=== PATIENT | female | born 1990 | race American Indian/Alaskan Native ===

== ENCOUNTER 2017-10-27 20:00 | Emergency (ER) | payer OTHER ==
[2017-10-27 20:00] VITALS: BMI 57.5
--- NOTE | 2017-10-27 20:09 | ED PDOC ---
"Arrival/HPI - General Historian: Patient <Asad Harper - Last Filed: 10/28/17 01:08> <Filipe Perez - Last Filed: 10/28/17 01:41> - General Time Seen by Provider: 10/27/17 20:08 - History of Present Illness Narrative History of Present Illness (Text): 10/27/17 20:09 27 y/o female, pmh including bronchitis, nkda, c/o nausea/vomiting/diarrhea x 1- 2 weeks. 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 (Asad Harper) Past Medical History - Provider Review Nursing Documentation Reviewed: Yes - Past Medical History Past Medical History: No Previous - Pulmonary Hx Asthma: Yes Hx Bronchitis: Yes - Psychiatric Hx Psychophysiologic Disorder: No Hx Depression: No Hx Emotional Abuse: No Hx Physical Abuse: No Hx Substance Use: No - Past Surgical History Past Surgical History: No Previous - Suicidal Assessment Feels Threatened In Home Enviroment: No <Asad Harper - Last Filed: 10/28/17 01:08> Family/Social History - Physician Review Nursing Documentation Reviewed: Yes Family/Social History: Unknown Family HX Smoking Status: Current Some Days Smoker Hx Alcohol Use: Yes Hx Substance Use: No <Asad Harper - Last Filed: 10/28/17 01:08> Allergies/Home Meds <Asad Harper - Last Filed: 10/28/17 01:08> <Filipe Perez - Last Filed: 10/28/17 01:41> Allergies/Adverse Reactions: Allergies No Known Allergies Allergy (Verified 10/27/17 20:11) Review of Systems - Review of Systems Constitutional: Fatigue. absent: Fevers Eyes: absent: Vision Changes ENT: absent: Hearing Changes, Rhinorrhea Respiratory: absent: SOB, Cough Cardiovascular: absent: Chest Pain Gastrointestinal: Abdominal Pain, Diarrhea, Nausea, Vomiting Musculoskeletal: absent: Arthralgias, Back Pain Skin: absent: Rash, Pruritis Neurological: absent: Headache, Dizziness <Asad Harper - Last Filed: 10/28/17 01:08> Physical Exam Vital Signs Reviewed: Yes Temperature: Afebrile Blood Pressure: Normal Pulse: Regular Respiratory Rate: Normal Appearance: Positive for: Well-Appearing, Non-Toxic, Comfortable Pain Distress: Mild Mental Status: Positive for: Alert and Oriented X 3 - Systems Exam Head: Present: Atraumatic, Normocephalic Pupils: Present: PERRL Extroacular Muscles: Present: EOMI Conjunctiva: Present: Normal Mouth: Present: Moist Mucous Membranes Neck: Present: Normal Range of Motion Respiratory/Chest: Present: Clear to Auscultation, Good Air Exchange. No: Respiratory Distress, Accessory Muscle Use Cardiovascular: Present: Regular Rate and Rhythm, Normal S1, S2. No: Murmurs Abdomen: Present: Tenderness (generalized epigastric and LLQ tenderness), Normal Bowel Sounds. No: Distention, Peritoneal Signs, Rebound, Guarding Back: Present: Normal Inspection. No: CVA Tenderness Upper Extremity: Present: Normal Inspection. No: Cyanosis, Edema Lower Extremity: Present: Normal Inspection. No: Edema Neurological: Present: GCS=15, Speech Normal, Motor Func Grossly Intact, Gait Normal, Memory Normal Skin: Present: Warm, Dry, Normal Color. No: Rashes Psychiatric: Present: Alert, Oriented x 3, Normal Insight, Normal Concentration <Asad Harper - Last Filed: 10/28/17 01:08> Vital Signs Temp Pulse Resp BP Pulse Ox 10/27/17 23:38 78 17 115/64 100 10/27/17 20:00 98.7 F 80 19 141/89 100 Medical Decision Making - Lab Interpretations I have reviewed the lab results: Yes Interpretation: Abnormal lab values (wbc 14.2) - RAD Interpretation Pin Pusher: Radiologist <Asad Harper - Last Filed: 10/28/17 01:08> <Filipe Perez - Last Filed: 10/28/17 01:41> ED Course and Treatment: 10/27/17 20:27 -labs/ua/rapid flu -CT abdomen and pelvis -IVF/pepcid/reglan -observe and reassess 10/27/17 21:42 -Urine hcg negative. -Labs are non-significant except wbc 14.2 -Negative influenza -Pending UA and CT. 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 Fatty infiltration of an enlarged liver. Normal appendix. 10/28/17 01:08 -UA show no UTI. -Pt. feels well, eating and drinking well, no other medical or psychological complaints. -Case discussed with Dr. Perez, agreed to discharge home. I explained to the patient that she should follow up for her wbc is 14.2 to ensure there needs to be a trend down. -Discharge home with pepcid, zofran, bed rest, follow up with your own pmd and GI within 2 days, return to the ER for any new or worsening signs or symptoms. (Asad Harper) - Lab Interpretations Lab Results: 10/27/17 20:45 10/27/17 20:45 Lab Results 10/28/17 00:10: Urine Color Yellow, Urine Appearance Clear, Urine pH 6.5, Ur Specific Colona <= 1.005, Urine Protein Negative, Urine Glucose (UA) Negative, Urine Ketones Negative, Urine Blood Negative, Urine Nitrate Negative, Urine Bilirubin Negative, Urine Urobilinogen 0.2, Ur Leukocyte Esterase Negative 10/27/17 21:00: Influenza Typ A,B (EIA) Negative for flu a/b 10/27/17 20:45: Sodium 139, Potassium 3.9, Chloride 103, Carbon Dioxide 27, Anion Gap 14, BUN 12, Creatinine 0.9, Est GFR ( Amer) > 60, Est GFR (Non- Af Amer) > 60, Random Glucose 95, Calcium 10.0, Total Bilirubin 0.5, AST 36, ALT 45, Alkaline Phosphatase 86, Total Protein 9.0 H, Albumin 4.4, Globulin 4.6 , Albumin/Globulin Ratio 1.0 L, Lipase 30 10/27/17 20:45: WBC 14.2 H D, RBC 4.89, Hgb 13.1, Hct 40.3, MCV 82.4, MCH 26.8, MCHC 32.5, RDW 14.9 H, Plt Count 314, MPV 10.8, Gran % 59.9, Lymph % (Auto) 30.1 , Isabela % (Auto) 6.6 H, Eos % (Auto) 3.2, Baso % (Auto) 0.2, Gran # 8.49 H, Lymph # 4.3 H, Isabela # 0.9 H, Eos # 0.5, Baso # 0.03 - RAD Interpretation Radiology Orders: 10/27/17 20:24 ABD & PELVIS IV CONTRAST ONLY [CT] Stat Lower thorax: The bilateral lung bases are clear. ABDOMEN: Liver: The liver is enlarged and demonstrates diffuse fatty infiltration. Gallbladder and bile ducts: The gallbladder is decompressed. No calcified stones. No significant intra- or extrahepatic biliary ductal dilation. Pancreas: Enhances homogeneously. No ductal dilation. No discrete mass. Spleen: No acute findings. Adrenals: No acute findings. Kidneys and ureters: Striated nephrograms are detected bilaterally for which clinical correlation is needed. No hydronephrosis or renal calculi. No discrete solid mass. IFEOMA LAINEZ | Final Radiology Report CONFIDENTIALITY STATEMENT This report is intended only for use by the referring physician, and only in accordance with law. If you received this in error, call [phone]. Page 2 of 2 PELVIS: Bladder: No acute findings. Reproductive: No acute findings. Appendix: The appendix is of normal caliber (series 2, image 128) . ABDOMEN and PELVIS: Stomach and bowel: No obstruction. No mucosal thickening. Peritoneum: No significant fluid collection. No free air. Lymph nodes: No pathologically enlarged lymph nodes. Vasculature: Unremarkable. Bones: No acute fracture. 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 Fatty infiltration of an enlarged liver. Normal appendix. Thank you for allowing us to participate in the care of your patient. Dictated and Authenticated by: Maia Reyna MD 10/27/2017 11:14 PM Eastern Time ([place] & [place]) (Asad Harper) - Medication Orders Current Medication Orders: Discontinued Medications Famotidine (Pepcid) 20 mg IVP STAT STA Stop: 10/27/17 20:25 Last Admin: 10/27/17 21:08 Dose: 20 mg IVP Administration Document 10/27/17 21:08 EQ (Rec: 10/27/17 21:08 EQ [facility] [id number]) Charges for Administration # of IVP Administrations 1 Sodium Chloride (Sodium Chloride 0.9%) 1,000 mls @ 999 mls/hr IV .Q1H1M STA Stop: 10/27/17 21:24 Last Admin: 10/27/17 21:08 Dose: 999 mls/hr eMAR Start Stop Document 10/27/17 21:08 EQ (Rec: 10/27/17 21:08 EQ [facility] [id number]) Intravenous Solution Start Date 10/27/17 Start Time 21:08 Metoclopramide HCl (Reglan) 10 mg IVP STAT STA Stop: 10/27/17 20:25 Last Admin: 10/27/17 21:08 Dose: 10 mg IVP Administration Document 10/27/17 21:08 EQ (Rec: 10/27/17 21:08 EQ [facility] [id number]) Charges for Administration # of IVP Administrations 1 - PA / [employer]ER / Resident Statement SURJIT has reviewed & agrees with the documentation as recorded. <Asad Harper - Last Filed: 10/28/17 01:08> - PA / [employer]ER / Resident Statement SURJIT has reviewed & agrees with the documentation as recorded. SURJIT has examined the patient and agrees with the treatment plan. <Filipe Perez - Last Filed: 10/28/17 01:41> Disposition/Present on Arrival - Present on Arrival Any Indicators Present on Arrival: No History of DVT/PE: No History of Uncontrolled Diabetes: No Urinary Catheter: No History of Decub. Ulcer: No History Surgical Site Infection Following: None - Disposition Have Diagnosis and Disposition been Completed?: Yes Disposition Time: 01:15 Patient Plan: Discharge <Asad Harper - Last Filed: 10/28/17 01:08> <Filipe Perez - Last Filed: 10/28/17 01:41> - Disposition Diagnosis: Gastroenteritis, Leukocytosis (leucocytosis) Disposition: HOME/ ROUTINE Patient Problems: Current Active Problems Problem Status Onset Gastroenteritis Acute Leukocytosis (leucocytosis) Acute Condition: IMPROVED Additional Instructions: -Discharge home with pepcid, zofran, bed rest, follow up with your own pmd and GI within 2 days, return to the ER for any new or worsening signs or symptoms. Prescriptions: Famotidine [Pepcid] 20 mg PO BID PRN #22 tab PRN Reason: Other Ondansetron [Zofran] 4 mg PO Q8H PRN #10 tab PRN Reason: Nausea/Vomiting Referrals: Edson Mars MD [Staff Provider] - Follow up with primary Forms: WORK NOTE"
[2017-10-27 20:15] VITALS: TEMP 98.7
[2017-10-27] MEDS ORDERED: Sodium Chloride 0.9% 1,000 ML IV STA (20:24)
[2017-10-27 20:52] LABS: BASO # 0.03 K/mm3 (0.0-2.0); BASO % 0.2 % (0.0-3.0); EOS # 0.5 (0.0-0.7); EOS % 3.2 % (1.5-5.0); GRAN # 8.49 (1.4-6.5); GRAN % 59.9 % (50.0-68.0); HEMATOCRIT 40.3 % (36.0-48.0); LYMPH # 4.3 (1.2-3.4); LYMPH % 30.1 % (22.0-35.0); MEAN CELL VOLUME 82.4 fl (80.0-105.0); MEAN CORPUSCULAR HEMOGLOBIN 26.8 pg (25.0-35.0); MEAN CORPUSCULAR HGB CONC 32.5 g/dl (31.0-37.0); MEAN PLATELET VOLUME 10.8 fl (7.0-11.0); MONO # 0.9 (0.1-0.6); MONO % 6.6 % (1.0-6.0); RED CELL DISTRIBUTION WIDTH 14.9 % (11.5-14.5); WHITE BLOOD COUNT 14.2 10^3/ul (4.5-11.0)
[2017-10-27 21:02] LABS: ALKALINE PHOSPHATASE 86 U/L (38-126); ALT/SGPT 45 U/L (7-56); AST/SGOT 36 U/L (14-36); BILIRUBIN,TOTAL 0.5 mg/dL (0.2-1.3); BLOOD UREA NITROGEN 12 mg/dL (7-21); CARBON DIOXIDE 27 mmol/L (21-33); CHLORIDE 103 mmol/L (98-107); GFR AFRICAN-AMERICAN > 60; GLUCOSE,RANDOM 95 mg/dL (70-110); LIPASE 30 U/L (23-300); POTASSIUM 3.9 mmol/L (3.6-5.0); SODIUM 139 mmol/L (132-148)
--- NOTE | 2017-10-27 23:14 | CT ---
EXAM: CT Abdomen and Pelvis With Intravenous Contrast CLINICAL HISTORY: 27 years old, female; Signs and symptoms; Vomiting and other: Diarrhea; Additional info: Abdominal pain/nausea/vomiting/diarrhea TECHNIQUE: Axial computed tomography images of the abdomen and pelvis with intravenous contrast. All CT scans at this facility use one or more dose reduction techniques, viz.: automated exposure control; ma/kV adjustment per patient size (including targeted exams where dose is matched to indication; i.e. head); or iterative reconstruction technique. MIP reconstructed images were created and reviewed. Coronal and sagittal reformatted images were created and reviewed. CONTRAST: 144 mL of omnipaque 350 administered intravenously. COMPARISON: No relevant prior studies available. FINDINGS: Lower thorax: The bilateral lung bases are clear. ABDOMEN: Liver: The liver is enlarged and demonstrates diffuse fatty infiltration. Gallbladder and bile ducts: The gallbladder is decompressed. No calcified stones. No significant intra- or extrahepatic biliary ductal dilation. Pancreas: Enhances homogeneously. No ductal dilation. No discrete mass. Spleen: No acute findings. Adrenals: No acute findings. Kidneys and ureters: Striated nephrograms are detected bilaterally for which clinical correlation is needed. No hydronephrosis or renal calculi. No discrete solid mass. PELVIS: Bladder: No acute findings. Reproductive: No acute findings. Appendix: The appendix is of normal caliber (series 2, image 128) . ABDOMEN and PELVIS: Stomach and bowel: No obstruction. No mucosal thickening. Peritoneum: No significant fluid collection. No free air. Lymph nodes: No pathologically enlarged lymph nodes. Vasculature: Unremarkable. Bones: No acute fracture. 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 Fatty infiltration of an enlarged liver. Normal appendix.
[2017-10-28 00:36] LABS: PH,URINE 6.5 (4.7-8.0); URINE BILIRUBIN NEGATIVE (NEGATIVE); URINE BLOOD NEGATIVE (NEGATIVE); URINE GLUCOSE (UA) NEGATIVE (NEGATIVE); URINE KETONE NEGATIVE (NEGATIVE); URINE LEUKOCYTE ESTERASE NEGATIVE Leu/uL (NEGATIVE); URINE PROTEIN NEGATIVE mg/dL (<30 mg/dL); URINE UROBILINOGEN 0.2 E.U./dL (<1 E.U./dL)
[2017-10-28 00:49] LABS: URINE APPEARANCE CLEAR (CLEAR); URINE COLOR YELLOW (YELLOW)
[2017-10-28 01:41] VITALS: BP 141/88; PULSE 76; RESP 19; O2SAT 97
== END 2017-10-28 01:40 | disposition home or self-care (01) ==
LOC: ED 20:00
DX: K52.9 Noninfective gastroenteritis and colitis, unspecified (principal); D72.829 Elevated white blood cell count, unspecified
CPT/HCPCS: 74177; 80053; 81003; 83690; 85025; 87804; 96374; 96375; 99284; J2765; J7040; Q9967